=== PATIENT | male | born 1965 | race Caucasian/White ===

== ENCOUNTER → 2024-08-07 07:00 | Outpatient (REF) | payer BC, SELFPAY | LOC: HWRCS 07:00 | PROVIDERS: ATTENDING PHYSICIAN Nurse Practitioner Adult Health | DX: I45.10 Unspecified right bundle-branch block (principal) | CPT/HCPCS: 93306 ==

== ENCOUNTER 2025-03-25 11:58 | Inpatient (IN) | payer BC, SELFPAY ==
[2025-03-25] VITALS (7 sets, daily range): BP systolic 115–190; BP diastolic 60–98; BMI 34.9; BMI 34.2
--- NOTE | 2025-03-25 01:30 | ED.GENMED ---
History of Present Illness
General
Chief Complaint: Flank Pain
Source: patient
Exam Limitations: none
Time Seen by Provider: 03/25/25 01:11
Nursing documentation reviewed up to this point in time: agreed with
History of Present Illness
History of Present Illness:
HISTORY OF PRESENT ILLNESS
The patient is a 59-year-old male with history of borderline hypertension, hyperlipidemia, incomplete right bundle branch block, allergic rhinitis, presenting with mid back pain that began a couple of days ago. The pain is constant, worsening over
the past 2 days, and the patient reports it being the same regardless of movement or laying down. The patient has been taking Tylenol and ibuprofen, which provide temporary relief. Last dose of ibuprofen, 600 mg at 8:00 PM. The pain radiates
across the back without a specific focal point and does not seem to be more pronounced on one side. Additionally, the patient mentions experiencing a scratchy throat that began approximately two days ago, potentially due to a mild cold that started
Saturday. They deny any nausea, but do notice slight stomach discomfort particularly after eating, localizing to the upper abdomen that began today. He believes he has been running fever that began 2 days ago. He denies hematuria, or dysuria has
been noticed, and the patient has not had a history of kidney problems.
His only daily medications are an allergy medicine and a nasal spray.
Past History
Past History
ED Past Medical History: HTN, Hypercholesterolemia and Other (Allergic rhinitis, incomplete right bundle branch block)
ED Past Surgical History: Orthopedic and Other (Myringotomy tubes, nasal surgery)
Social History
Tobacco: Non-smoker
Alcohol: Occasional
Drug: None
Personal:
Living: with family
Employment: Employed
Family History
Family History: Other (Noncontributory)
Phy Exam
Physical Exam
Physical Exam:
GENERAL: 59-year-old gentleman appears his stated age, awake and alert, pleasant, appears in no acute distress. Low-grade fever noted 100.1 �F. Moderately hypertensive.
EYE: pupils equal and reactive. anicteric
NECK: Supple, nontender, no meningismus, no significant adenopathy.
ENT: posterior pharynx is clear, oral mucosa is moist. TM clear b/l, nares patent.
CARDIAC: Regular rate and rhythm. no murmur.
LUNGS: Clear breath sounds bilaterally, no acute respiratory distress, no wheezes/rales/rhonchi
ABDOMEN: Soft, nondistended, mild epigastric tenderness to palpation, no r/g, no cvat. normoactive BS.
BACK: No midline bony tenderness. No paravertebral muscle tenderness.
NEUROLOGICAL: Alert and oriented x3, no focal neuro deficits. Gait is hooks and steady.
SKIN: Warm and dry, normal color, skin intact. No rash.
MUSCULOSKELETAL: No C/C/E. peripheral pulses are full and equal b/l. No palpable tenderness.
PSYCH: Normal and appropriate interaction.
Course
Orders/Labs/Results
Orders:
Orders
03/25/25 01:29
Electrocardiogram (*1) Urgent
Reason for Study: Abdominal Pain
EKG- Treatment ONCE
03/25/25 01:30
0.9% Sodium Chloride 1000 ml [Nss] 1,000 ml IV BOLUS
Acetaminophen [Tylenol] 1,000 mg PO NOW STA
03/25/25 01:35
Complete Blood Count/With Diff Urgent
Comprehensive Metabolic Panel Urgent
Lipase Urgent
Troponin I Urgent
Influenza A+B Rapid Molecular Urgent
ISAIAS Source: Nasal Swab
Specimen Description:
03/25/25 01:36
COVID-19 Antigen Urgent
Source: Nasal Swab
Lactic Acid Urgent
03/25/25 02:38
CT Abd/pelvis W Iv Cont Urgent
Comment:
Reason For Exam: acute upper abd/mid back pain, fever, elevd lipase
03/25/25 02:39
HYDROmorphone [Dilaudid] 0.5 mg IV NOW STA
03/25/25 02:46
Urinalysis Reflex To Culture Urgent
Date Specimen was Collected: 03/25/25
Time Specimen was Collected: 02:42
Abnormal Lab Results
03/25/25
01:35
WBC 12.3 H 10^3/uL
(4.8-10.8)
Absolute Neuts (auto) 8.1 H 10^3/uL
(1.4-6.5)
Absolute Monos (auto) 1.9 H 10^3/uL
(0.1-0.6)
Lymphocytes % 15.7 L %
(20.5-51.1)
Monocytes % 15.4 H %
(1.7-9.3)
Glucose 120 H mg/dl
(70-99)
Lipase 862 H U/L
(23-300)
03/25/25 01:35
03/25/25 01:35
Vital Signs
Temp: 100.1 F
Initial and Last Documented VS:
Initial Vital Signs
Temp Pulse BP Pulse Ox
99.3 F 97 190/98 98
03/25/25 00:52 03/25/25 00:52 03/25/25 00:52 03/25/25 00:52
Last Documented Vital Signs
Temp Pulse BP Pulse Ox
100.1 F 97 181/94 98
03/25/25 01:31 03/25/25 00:52 03/25/25 00:56 03/25/25 01:31
MDM/Problems Addressed
Differential Diagnosis Includes:
DIFFERENTIAL DIAGNOSIS
The Differential Diagnosis includes, in no particular order and is not limited to:
1. Musculoskeletal strain
2. Kidney stone
3. Pyelonephritis
4. Gastroesophageal reflux disease
5. Upper respiratory infection
6. Peptic ulcer disease
7. Gallbladder disease
8. Pneumonia
9. Viral pharyngitis
10. Hypertensive emergency
MDM/Problems Addressed:
Acute back pain
Acute febrile illness
Mild viral URI symptoms
Will check labs, lactic acid, flu and COVID testing, urinalysis, EKG, troponin.
Will consider imaging depending on results.
Will give a dose of Tylenol now for fever and initiate IV fluids.
Chronic conditions affecting care:
Allergic rhinitis
Hyperlipidemia
Newer onset hypertension. Upon review of PCP records, blood pressure elevated 156/100 during routine visit June of this year.
*Radiology
Radiology exam reviewed: radiology read reviewed (CAT scan shows inflammation surrounding the pancreas suggesting pancreatitis. No bowel obstruction or diverticulitis. No cholecystitis.)
*Pulse Oximetry
SaO2: 98
Oxygen Mode of Delivery: Room air
Patient hypoxic: no
*EKG
Interpreted by ED Provider?: Yes
Interpretation: normal
Comparison EKG: no comparison EKG present
Rate: normal
Rhythm: sinus
[place]: normal axis
Interval: normal interval
QRS Pattern: normal QRS
Ischemia: no ischemia
*Filteration Operator Interpretation
Rate: normal
Interpretation: normal
Rhythm: sinus
*Critical Care Note
Total Time (30-74mins, 75-104mins- exclusive of procedures): Not Applicable
Update Note
Update Note:
04:20
Labs are remarkable for moderately elevated lipase at 862. LFTs are otherwise within normal limits. White blood cell count mildly elevated at 12.3. Troponin is negative. EKG is unremarkable. COVID and flu testing are negative.
CT abdomen pelvis shows inflammation surrounding the pancreas suggestive of pancreatitis. No cholecystitis. Incidental note of enlarged prostate. Bladder wall thickening. Urinalysis is normal.
No prior history of pancreatitis.
Moderate improvement in pain after an IV dose of Dilaudid
Will continue IV fluids, continue pain medication as needed and will plan to admit to hospitalist service.
ED Attending Note
-
Portions of this chart may have been created with voice recognition software.� Occasional wrong word or��sound alike� substitutions may have occurred due to the inherent limitations of voice recognition software.
Discharge Plan
Departure
Patient Disposition: Admit
Date of Disposition: 03/25/25
Time of Disposition: 04:21
Admit to doctor: Karlene
Presentation/result/management discussed w/ accepting MD/DO: Hospitalist
Condition: Fair
Discharge Problem:
Acute pancreatitis
Referrals:
Yoko Nash CRNP [Family Provider, General]
Interventions
Interventions:
*Risk Screen - Suicide Last Done: 03/25/25 00:56
Discharge Date and Time
Print Language: AMHARIC
[2025-03-25] MEDS: TYLENOL 1000 MG PO (01:38)
[2025-03-25] MEDS: NSS 1000 IV ×2 (01:39→18:35)
[2025-03-25 01:43] LABS: Hematocrit 41.3 % (39.0-52.0); Hemoglobin 14.1 g/dL (13.0-18.0); Mean Corp Hgb Conc. 34.1 g/dL (33.0-37.0); Mean Corpuscular Volume 81.3 fL (80.0-94.0); Nucleated Red Blood Cells % 0 % (-); Platelet Count 264 10^3/uL (130-400); Red Cell Dist. Width 13.2 % (11.5-14.5)
[2025-03-25 02:06] LABS: COVID-19 Antigen Negative (Negative)
[2025-03-25 02:08] LABS: ALT (SGPT) 26 U/L (0-50); AST (SGOT) 26 U/L (17-59); Albumin 4.3 g/dl (3.5-5.0); Alkaline Phosphatase 80 U/L (38-126); Blood Urea Nitrogen 14 mg/dl (9-20); Calcium 8.9 mg/dl (8.4-10.2); Carbon Dioxide 24 mmol/L (22-30); Chloride 104 mmol/L (98-107); Glucose 120 mg/dl (70-99); Lipase 862 U/L (23-300); Potassium 4.0 mmol/L (3.5-5.1); Sodium 138 mmol/L (135-145); Total Protein 7.6 g/dl (6.3-8.2); eGFR > 60.00
[2025-03-25 02:19] LABS: Troponin I 0.013 ng/ml
[2025-03-25 03:00] LABS: Urine Character Clear (Clear)
[2025-03-25] MEDS: DILAUDID 0.5 MG IV ×2 (03:15→08:07)
--- NOTE | 2025-03-25 04:25 | HPS.HSE ---
Family Physician
-
Family Physician: Yoko Nash
Chief Complaint
-
Abdominal pain
History of Present Illness
Patient is a 59-year-old who denies any significant past medical history except for occasional seasonal allergies presents to the emergency department with abdominal pain.
Patient reported started having symptoms about Saturday with mid epigastric abdominal pain that was radiating to the left upper quadrant. He says the pain is worse with food intake. Today the pain was radiating to the back. Initially thought it was
flank pain but he had no urinary symptoms. He had mild nausea but no vomiting. Patient denies any changes to the color of his urine. Denies any changes coloration hives or skin.
Patient initially thought that on Saturday he had mild upper respiratory symptoms and he was taking Zicam (zinc supplement) for symptomatic relief.
Denies any personal history of family history of gallstones. Patient reports that he drinks several beers daily. A endorse drinking significant amount of alcohol over the and stated that his last drink was on Saturday when he
had about 4-5 beers. He denied any prior history of pancreatitis. He denies any smoking.
In the emergency department he was afebrile, blood pressure was elevated 180/90 with a pulse rate of 97 and oxygen saturation 98%. He had a low-grade temp of 100.1. ECG shows normal sinus rhythm at rate of [address] or T wave
changes. CBC shows a white count of 12.3 but otherwise unremarkable. Electrolytes BUN and creatinine were normal. LFTs were normal, lipase was 860. CT of the abdomen pelvis shows pancreatic inflammation suggestive of pancreatitis without any
evidence of necrosis. No obstructing biliary stone, no gallbladder stone, no evidence of cholecystitis. No acute intra-abdominal process noted.
Medical History
Past Medical History
Past Medical History: Reports None
Past Surgical History: Reports None
Social History
Tobacco: Non-smoker
Alcohol: Binge drinker
Drug: None
Family History
Family History: Not pertinent
Allergies / Home Medications
Allergies reflects when Allergies were last updated in [facility].
Home Medications with original date entered in [facility]
Allergy/Medication List:
Allergies
Allergy/AdvReac Type Severity Reaction Status Date / Time
No Known Allergies Allergy Unverified 03/25/25 01:02
If medication reconciliation has not been performed, why?: Other
If Other, explain: Patient does not take any prescription medications.
Review of Systems
-
Constitutional: Reports No Symptoms
EENT: Reports No Symptoms
Respiratory: Reports No Symptoms
Cardiac: Reports No Symptoms
Abdomen/GI: Reports Abdominal Pain
: Reports No Symptoms
Musculoskeletal: Reports No Symptoms
Skin: Reports No Symptoms
Neurological: Reports No Symptoms
Endocrine: Reports No Symptoms
Hematologic/Lymphatic: Reports No Symptoms
Psych: Reports No Symptoms
Physical Exam
Vital Signs
Vital Signs
Temp Pulse BP Pulse Ox
100.1 F 97 181/94 98
03/25/25 01:31 03/25/25 00:52 03/25/25 00:56 03/25/25 01:31
Physical Exam
General: Well Developed, Well Nourished and No Apparent Distress
HEENT: NormoCephalic, Moist mucous membranes and Atraumatic
Respiratory: Clear
Cardiac: S1/S2 and Regular Rhythm; No Murmur or Rub
GI: Soft, Non Tender, Non Distended and Normal Bowel Sounds; No Organomegaly
Rectal: Deferred by Provider
Musculoskeletal: No Clubbing, No Cyanosis and No Edema
Skin: No Rash
Neuro: Nonfocal/grossly intact
Laboratory Results
-
03/25/25 01:35
03/25/25 01:35
Laboratory Results
Lactic Acid 0.9 mmol/L (0.7-2.0) 03/25/25 01:36
Total Bilirubin 0.8 mg/dl (0.2-1.3) 03/25/25 01:35
AST 26 U/L (17-59) 03/25/25 01:35
ALT 26 U/L (0-50) 03/25/25 01:35
Alkaline Phosphatase 80 U/L (38-126) 03/25/25 01:35
Troponin I 0.013 ng/ml 03/25/25 01:35
Lipase 862 U/L (23-300) H 03/25/25 01:35
Data Reviewed
-
CT Scan: Report Reviewed by me
Medical Tests (Nuc Med, Echo, EKG etc): Image Personally Visualized and interpreted
Lab Data: Labs Reviewed by me
Old Records: Reviewed
Impression/Plan
-
IMPRESSION:
5-year-old male with no known significant past medical history presents to the emergency department with epigastric pain radiating to the back and flank for about the last 3 days in the setting of some increased alcohol intake. Labs showed
pancreatitis with lipase of 860, CT abdomen pelvis consistent with pancreatitis without complication. There are no gallstones, biliary ductal dilation, or acute intra-abdominal process. LFTs were normal. Patient is nontoxic-appearing, labs are
unremarkable otherwise. COVID and flu test were negative.
PLAN:
Acute pancreatitis -suspect alcohol induced pancreatitis, and no evidence of gallstone pancreatitis. Patient's not on any medications. Unlikely viral induced episode.
� Admit to MedSurg observation
� N.p.o. for now
� Aggressive IV fluids
� Pain control antiemetics
�Check lipid panel and A1c in a.m.
� Advance diet as tolerated
DVT prophylaxis�Lovenox subcu
CODE STATUS�full code
[2025-03-25 06:00] LABS: Hematocrit 39.9 % (39.0-52.0); Hemoglobin 13.6 g/dL (13.0-18.0); Mean Corp Hgb Conc. 34.1 g/dL (33.0-37.0); Mean Corpuscular Volume 83.1 fL (80.0-94.0); Platelet Count 249 10^3/uL (130-400); Red Cell Dist. Width 13.2 % (11.5-14.5)
[2025-03-25 06:29] LABS: Blood Urea Nitrogen 13 mg/dl (9-20); Calcium 8.7 mg/dl (8.4-10.2); Carbon Dioxide 21 mmol/L (22-30); Chloride 104 mmol/L (98-107); Estimated Creatinine Clearance > 125 ml/min; Glucose 119 mg/dl (70-99); Potassium 4.1 mmol/L (3.5-5.1); Sodium 136 mmol/L (135-145); Triglycerides 58 mg/dl (10-149); eGFR > 60.00
[2025-03-25] MEDS: D5LR 1000 IV (08:08)
--- NOTE | 2025-03-25 08:28 | W.PN.HOSP.TC ---
Today's Communication/Plan
-
NPO after midnight for pacemaker in AM.
Advance diet to clear liquid diet.
Assessment / Plan
Assessment / Plan
Impression:
5-year-old male with no known significant past medical history presents to the emergency department with epigastric pain radiating to the back and flank for about the last 3 days in the setting of some increased alcohol intake. Labs showed
pancreatitis with lipase of 860, CT abdomen pelvis consistent with pancreatitis without complication. There are no gallstones, biliary ductal dilation, or acute intra-abdominal process. LFTs were normal. Patient is nontoxic-appearing, labs are
unremarkable otherwise. COVID and flu test were negative.
CT abdomen pelvis:
Gallbladder: Unremarkable.
Bile Ducts: No bile duct dilatation.
Pancreas: Mild inflammatory soft tissue stranding surrounding the pancreas, most pronounced adjacent to the pancreatic head, consistent with pancreatitis.
Normal triglyceride
In the ER patient developed 8-second pause followed by 2 3-second pauses, reconsulted, plan for pacemaker
Assessment/plan:
Sinus pauses.
Patient developed 8-second pause followed by 2, 3-second pauses.
Cardiology consulted.
Echocardiogram pending.
N.p.o. after midnight for possible pacemaker.
Acute pancreatitis -suspect alcohol induced pancreatitis.
CT abdomen pelvis:
Gallbladder: Unremarkable.
Bile Ducts: No bile duct dilatation.
Pancreas: Mild inflammatory soft tissue stranding surrounding the pancreas, most pronounced adjacent to the pancreatic head, consistent with pancreatitis.
Normal triglyceride
� Admitted under hospitalist
� Initially n.p.o., now on clear
� Aggressive IV fluids
� Pain control antiemetics
�Check lipid panel and A1c in a.m.
DVT prophylaxis�Lovenox subcu
CODE STATUS�full code
Diet: CLD- NPO after MN
Disposition: NPO after midnight for pacemaker in AM.
Advance diet to clear liquid diet.
Total time spent on today's encounter was 55 minutes which included time spent in counseling the patient/family regarding diagnosis and treatment plan as listed above, goals of care, and symptom management. Case was discussed with nursing staff,
specialists, and care coordinators/case management. All labs and imaging personally reviewed by me. Remainder the time spent in detailed review of previous records, lab data, imaging, and other medical provider documentation.
Anticipated Discharge: 24 - 48 hours
Subjective/Interval History
-
Date of Service: March 25, 2025
Patient seen and examined at bedside, denies any chest pain or shortness of breath, no abdominal pain, no nausea, no vomiting, no diarrhea or constipation.
Patient had 8 seconds pause followed by 2 to 3-second pauses, cardiology consulted
Objective Data
-
Labs:
Laboratory Results
03/25/25 03/25/25
01:35 05:48
WBC 12.3 H 13.7 H
Hgb 14.1 13.6
Hct 41.3 39.9
Plt Count 264 249
Sodium 138 136
Potassium 4.0 4.1
Chloride 104 104
Carbon Dioxide 24 21 L
BUN 14 13
Creatinine 0.9 0.8
Glucose 120 H 119 H
Calcium 8.9 8.7
Total Bilirubin 0.8
AST 26
ALT 26
Alkaline Phosphatase 80
Vital Signs:
Vital Signs
Temp Pulse Resp BP Pulse Ox
100.1 F 76 16 145/63 97
03/25/25 01:31 03/25/25 08:15 03/25/25 04:15 03/25/25 08:04 03/25/25 08:04
Physical Exam
-
General: Well Developed, Well Nourished, No Apparent Distress and Comfortable
HEENT: Normocephalic, Atraumatic, Moist Mucous Membranes, No Ptosis, PERRLA and Nose Appears Normal
Respiratory: Clear to Auscultation and Non Labored Respirations
Cardiac: Regular Rhythm and S1/S2
Breast: Deferred by me
GI: Soft and Tender (Mild epigastric tenderness)
Genito-urinary: No Costovertebral Tender
Musculoskeletal: No Clubbing, No Cyanosis and No Edema
Skin: Warm
Neuro: Awake, Alert, Oriented, AO x 3 and No Motor Deficits
Psych: Calm
Data Reviewed
-
Diagnostic Radiology: Image personally visualized and interpreted and Report Reviewed by me
CT Scan: Image personally visualized and interpreted and Report Reviewed by me
Ultrasound: Image personally visualized and interpreted and Report Reviewed by me
MRI: Image personally visualized and interpreted and Report Reviewed by me
Medical Tests (Nuc Med, Echo etc): Image personally visualized and interpreted and Report Reviewed by me
Labs: Labs Reviewed by me
Old Records: Reviewed
--- NOTE | 2025-03-25 09:47 | CON.CAR ---
Addendum entered and electronically signed by Garrett Lobo MD 03/25/25 15:46:
I saw and examined the patient independently and performed majority of MDM.
The COMMERCIAL TRUCK DRIVER's note was reviewed and I agree with the note with changes/additions below.
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 Being treated for EtOH pancreatis. Had episode of nausea, vomiting, then felt dizziness and pre-syncopal. No chest pain. Exam with RRR, no
murmurs, no edema. EKG: NSR, iRBBB. Tele: 8 sec pause at time of sxs. Echo: EF 55-60%, no sig valve disease.
Sinus node dysfunction. Severe. 8 second pause. With dizziness. Discussed with EP. Plan for PPM this admission, once pancreatitis improves.
Pancreatitis. NPO, IV fluids per hospitalist.
HTN. Trend BP. Will likely need BP med started this admission.
Original Note:
Consultation
Consultation Request
Date/Time Consultation Requested: 03/25/25 0900
Date/Time Consultation Performed: 03/25/25 0939
Requesting Provider: Dr. Monroy
Performing Provider: Clara DIOR for Dr. Lobo
Reason for Consultation: cardiac pause
Medical History
-
Chief Complaint: abdominal pain
History of Present Illness:
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 He describes it as achy around his abdomen and radiates to
his back. He is seen to have pancreatitis. He has been given fluids. He received Dilaudid overnight without issue, but then this AM, he received Dilaudid and afterward developed nausea and dry heaves and monitor revealed 8 second pause. He did not
pass out. About 1 hour later, he went to the bathroom to urinate. When washing his hands, he felt light-headed. He walked to the bed and while setting up his pillow felt nauseated and with dry heaves and LH again. Both times were associated with
bradycardia with about 3 second pauses x 2. He looks well at the time of my assessment. He is in SR. Baseline EKG SR with IC RBBB. Pain is controlled.
Past Medical History
Past Medical History: HTN, Hypercholesterolemia and Other (as above)
Social History
Tobacco: Non-Smoker
Alcohol: Binge Drinker (1/2 case beer )
Drug: None
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
Family History
Family History: Reviewed & Not Pertinent
Allergies / Home Medications
Allergy/AdvReac Type Severity Reaction Status Date / Time
No Known Allergies Allergy Verified 03/25/25 05:22
�Medication �Instructions �Recorded �Confirmed �Type
acetaminophen 325 mg tablet 650 mg PO Q4H PRN mild pain 03/25/25 03/25/25 History
(Tylenol)
azelastine 137 mcg (0.1 %) nasal 1 spray intranasal DAILY 03/25/25 03/25/25 History
spray
fluticasone propionate 50 1 spray intranasal DAILY 03/25/25 03/25/25 History
mcg/actuation nasal
spray,suspension
ibuprofen 200 mg tablet 400 mg PO Q6H PRN mild pain 03/25/25 03/25/25 History
Review of Systems
-
History Source: Patient
All other systems: Negative unless noted
Physical Exam
Vital Signs
Temp Pulse Resp BP Pulse Ox
98.1 F 76 16 145/63 97
03/25/25 08:58 03/25/25 08:15 03/25/25 04:15 03/25/25 08:04 03/25/25 08:04
Lab Results
03/25/25 05:48
03/25/25 05:48
Troponin I 0.013 ng/ml 03/25/25 01:35
Physical Exam
General: Well Developed, Well Nourished and No Apparent Distress
HEENT: Normocephalic and Anicteric
Respiratory: Clear and Non Labored Respirations
Cardiac: Regular Rhythm
Musculoskeletal: No Edema
Skin: Warm and Dry
Neuro: AO x 3
Psych: Calm
Impression / Plan
-
Pancreatitis:
-on IV fluids and getting pain meds
-management per primary team
-we did discuss recommendation for (at least) decreasing ETOH use
Cardiac pause, bradycardia:
-currently in SR. Denies syncope. Had nausea/LH as described.
-8 second pause, followed by two 3 second pauses. Some artifact, so hard to determine rhythm afterward.
-echo 07/2024 normal, being updated today. Will check thyroid. Not on any AV santiago agents as OP.
-Baseline EKG SR IC RBBB
-will review with family practice physician
-may require pacemaker
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
HLD:
-patient tells me mild and has not required meds
HTN:
-patient tells me borderline and has not required meds
Data Reviewed
-
EKG: Tracing Personally Visualized and interpreted (SR IC RBBB [address] Scan: Report Reviewed by me (Mild pancreatitis.)
Medical Tests (Nuc Med, Echo etc): Report Reviewed by me (Echo 08/07/2024: Normal biventricular size and systolic function without regional wall motion abnormality. No significant valvular disease. )
Labs: Labs Reviewed by me
--- NOTE | 2025-03-25 13:24 | CM ---
Chart reviewed and spoke with pateint at bedside
Lives alone in a split level home
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
Independent with ADLs and ambulation
no DME
PCP Cielo Nash
[facility]
no hx of VN nor SNF
DCP is to return home and dtr can drive her home
Cm will continue to follow up for dcp needs
[2025-03-25] MEDS: ZOFRAN 4 MG IV ×2 (14:19→21:06)
[2025-03-25] MEDS: LOVENOX 40 MG SC (18:35)
[2025-03-25] MEDS: ROXICODONE 5 MG PO (18:40)
[2025-03-25] MEDS: ROXICODONE 10 MG PO (23:42)
[2025-03-26] MEDS: NSS 1000 IV ×2 (01:34→16:37)
[2025-03-26 03:44] VITALS: BP 115/60
[2025-03-26 07:40] VITALS: BP 133/68
--- NOTE | 2025-03-26 08:34 | W.PN.HOSP.TC ---
Today's Communication/Plan
-
For pacemaker today.
Assessment / Plan
Assessment / Plan
Impression:
5-year-old male with no known significant past medical history presents to the emergency department with epigastric pain radiating to the back and flank for about the last 3 days in the setting of some increased alcohol intake. Labs showed
pancreatitis with lipase of 860, CT abdomen pelvis consistent with pancreatitis without complication. There are no gallstones, biliary ductal dilation, or acute intra-abdominal process. LFTs were normal. Patient is nontoxic-appearing, labs are
unremarkable otherwise. COVID and flu test were negative.
CT abdomen pelvis:
Gallbladder: Unremarkable.
Bile Ducts: No bile duct dilatation.
Pancreas: Mild inflammatory soft tissue stranding surrounding the pancreas, most pronounced adjacent to the pancreatic head, consistent with pancreatitis.
Normal triglyceride
In the ER patient developed 8-second pause followed by 2 3-second pauses, reconsulted, plan for pacemaker
Assessment/plan:
Sinus pauses.
Patient developed 8-second pause followed by 2, 3-second pauses.
Cardiology consulted.
Echocardiogram pending.
N.p.o. after midnight for possible pacemaker.
03/26
Patient medically clear for Pacemaker procedure today.
Acute pancreatitis -suspect alcohol induced pancreatitis.
CT abdomen pelvis:
Gallbladder: Unremarkable.
Bile Ducts: No bile duct dilatation.
Pancreas: Mild inflammatory soft tissue stranding surrounding the pancreas, most pronounced adjacent to the pancreatic head, consistent with pancreatitis.
Normal triglyceride
� Admitted under hospitalist
� Initially n.p.o., now on clear
� Aggressive IV fluids
� Pain control antiemetics
03/26
pain improved
DVT prophylaxis�Lovenox subcu
CODE STATUS�full code
Diet: NPO
Disposition: For pacemaker today.
Total time spent on today's encounter was 55 minutes which included time spent in counseling the patient/family regarding diagnosis and treatment plan as listed above, goals of care, and symptom management. Case was discussed with nursing staff,
specialists, and care coordinators/case management. All labs and imaging personally reviewed by me. Remainder the time spent in detailed review of previous records, lab data, imaging, and other medical provider documentation.
Anticipated Discharge: 24 - 48 hours
Subjective/Interval History
-
Date of Service: March 26, 2025
Patient seen and examined at bedside, denies any chest pain or shortness of breath, no abdominal pain, no nausea, no vomiting, no diarrhea or constipation.
cleared for pacemaker today.
Objective Data
-
Labs:
Laboratory Results
03/26/25
08:14
WBC Pending
Hgb Pending
Hct Pending
Plt Count Pending
Sodium Pending
Potassium Pending
Chloride Pending
Carbon Dioxide Pending
BUN Pending
Creatinine Pending
Glucose Pending
Calcium Pending
Vital Signs:
Vital Signs
Temp Pulse Resp BP Pulse Ox
98.8 F 80 18 133/68 95
03/26/25 07:40 03/26/25 07:40 03/26/25 07:40 03/26/25 07:40 03/26/25 07:40
I&O
03/25/25 03/26/25 03/27/25
06:59 06:59 06:59
Intake Total 2139
Output Total
Balance 2138 / 2138
Physical Exam
-
General: Well Developed, Well Nourished, No Apparent Distress and Comfortable
HEENT: Normocephalic, Atraumatic, Moist Mucous Membranes, No Ptosis, PERRLA and Nose Appears Normal
Respiratory: Clear to Auscultation and Non Labored Respirations
Cardiac: Regular Rhythm and S1/S2
Breast: Deferred by me
GI: Soft and Nontender
Genito-urinary: No Costovertebral Tender
Musculoskeletal: No Clubbing, No Cyanosis and No Edema
Skin: Warm
Neuro: Awake, Alert, Oriented, AO x 3 and No Motor Deficits
Psych: Calm
[2025-03-26 08:37] LABS: Hematocrit 39.6 % (39.0-52.0); Hemoglobin 13.2 g/dL (13.0-18.0); Mean Corp Hgb Conc. 33.3 g/dL (33.0-37.0); Mean Corpuscular Volume 84.1 fL (80.0-94.0); Platelet Count 224 10^3/uL (130-400); Red Cell Dist. Width 13.2 % (11.5-14.5)
[2025-03-26 09:20] LABS: Blood Urea Nitrogen 13 mg/dl (9-20); Calcium 8.6 mg/dl (8.4-10.2); Carbon Dioxide 26 mmol/L (22-30); Chloride 101 mmol/L (98-107); Estimated Creatinine Clearance 111 ml/min; Glucose 92 mg/dl (70-99); Potassium 4.0 mmol/L (3.5-5.1); Sodium 135 mmol/L (135-145); eGFR > 60.00
--- NOTE | 2025-03-26 09:20 | W.PN.UPDATE ---
Update Note
Progress Note Update
EP Note
I have examined this patient prior to performance of the scheduled procedure. His condition is improved from the time of the History and Physical and the patient is able to undergo the scheduled procedure. Dr. Stanley feels that he is medically ok for
pacemaker implant today.
Dr. Lobo had reviewed case with Dr. Vasquez yesterday. I reviewed telemetry and obtained additional history.
No history of syncope. In addition to the two near syncopal episodes yesterday with documented asystole from COMPLETE HEART BLOCK he has had another episode in the last week or so while watching the [employer] game that felt jus like
yesterday's two episodes.
Most likely this is primary conduction system disease and vasovagal syncope is less likely. Vasovagal syncope more often has sinus slowing/sinus arrest with poor escape vs no change in sinus rate and asystole from only heart block.
He does have mild LVH on two echoes and RV conduction delay on EKG. Some BPs have been elevated but he is not being treated for HTN.
Signed informed consent was obtained after I reviewed the risks, benefits, and alternatives of pacemaker implant. Pacemaker followup was reviewed as was the need for future pulse generator changes with associated risks.
[2025-03-26 11:08] VITALS: BP 130/64
--- NOTE | 2025-03-26 14:55 | CM ---
Plan for pacemaker today
--- NOTE | 2025-03-26 16:39 | ITS.CL.PACE ---
Dynamometer Tuner - Pacemaker Implant
Pacemaker Implant
Procedure Report:
Date of Procedure: March 26, 2025.
Procedure: Pacemaker Implantation. Left upper extremity venogram.
Indication: The pacemaker is for the treatment of nonreversible symptomatic bradycardia due to paroxysmal third degree atrioventricular block.
Performing physician: Andrea Marcus MD, [facility].
Implants:
Pulse Generator: Medtronic; Model# W1DR01; Serial# [id number].
RA Lead: Medtronic; Model# 5076-52cm; Serial# [id number].
RV Lead: Medtronic; Model# 3830-69cm; Serial# [id number].
Technique: A time out was performed. A 10 mL upper extremity venogram demonstrated patent left axillary, cephalic, and subclavian veins. The procedure site was identified. The patient was anesthetized by the anesthesia service. Preoperative
vancomycin and aztreonam was administered. The patient was prepped and draped in the usual fashion. Local anesthetic was applied to the left prepectoral subcutaneous tissue. A 3 inch incision was made along the left deltopectoral groove. Dissection
was carried to the fascia. The left cephalic vein was easily isolated and proximal and distal control with 2-0 Vicryl suture. Using a micropuncture needle to access the cephalic vein under direct visualization a wire was advanced into the central
circulation. A 7 Fr introducer was placed to allow two 0.35 J wires to be advanced. The leads were introduced with hemostatic peel away introducer sheaths. The RV lead was placed using utilizing the [employer] His delivery catheter ([id number]) that was
advanced to the left bundle area as confirmed by fluoroscopy in the FRENCH and GARCIA projections. The lead tip was advanced. PVC morphology was reviewed. When a satisfactory location was identified (W pattern observed) the lead was screwed into position
with serial turns. Septal engagement was confirmed with gentle torque applied to the guide sheath. After each series of turns (2-3) unipolar sensed morphology and impedance, and paced morphology of V1 was analyzed. The lead was further advanced
until satisfactory morphology and electrical characteristics were confirmed. Several RV lead positions were evaluated before accepting the best location I found. The long guiding sheath was cut and removed from the RV without change in lead
position, impedance, sensing, or capture. The ventricular lead was secured to the pectoralis muscle and fascia with two 0-silk sutures. The atrial lead was placed in the right atrial appendage. 8 volt pacing from each lead did not capture the
diaphragm. The atrial leads was secured to the pectoralis muscle and fascia. A subcutaneous pocket was created with Bovie cautery. Hemostasis was excellent. The leads were appropriately attached to the device. The pocket was irrigated with
antibiotic solution. The device and leads were placed in the pocket. The incision was closed in three layers with absorbable suture. Steri-strips and a silver impregnated dressing were placed. Estimated blood loss was less than 5 ml. There were no
complications. Fluoroscopy time 13.2 minutes and DAP 8 GyCM2. The device was then interrogated after skin closure.
Lead Analysis:
RA lead: P: 1.4 mV; Threshold: 1 V @ 0.4 ms; Impedance: 836 ohms.
RV lead (bipolar): R: 6.4 mV; Threshold: 0.6 V @ 0.4 ms; Impedance: 551 ohms. RV unipolar impedance 620 ohms.
Paced QRS characteristics: V1 has Qr morphology and measures 130 ms in duration, LVAT (stim to peak V5/V6) is 80-85 ms, and R peak V1 to R peak V6 is 46 ms.
Final Programming: MVP (AAIR to DDDR) 50-130 bpm.
Conclusion: Uncomplicated Medtronic pacemaker implant. The pacing system is MRI conditional.
Recommendation: Routine post pacemaker care.
cc: Marie Lobo MD and Garrett Lobo MD.
[2025-03-26] MEDS: LOVENOX 40 MG SC (17:40)
[2025-03-26 19:00] VITALS: BP 128/77
[2025-03-26] MEDS: ANCEF 5 IV (21:52)
[2025-03-26 23:11] VITALS: BP 124/72
[2025-03-27 03:00] VITALS: BP 113/62
[2025-03-27] MEDS: ANCEF 5 IV (05:47)
[2025-03-27 07:00] VITALS: BP 128/70
[2025-03-27 08:22] LABS: Hematocrit 40.0 % (39.0-52.0); Hemoglobin 13.4 g/dL (13.0-18.0); Mean Corp Hgb Conc. 33.5 g/dL (33.0-37.0); Mean Corpuscular Volume 83.3 fL (80.0-94.0); Platelet Count 244 10^3/uL (130-400); Red Cell Dist. Width 12.9 % (11.5-14.5)
[2025-03-27 08:53] LABS: Blood Urea Nitrogen 17 mg/dl (9-20); Calcium 9.0 mg/dl (8.4-10.2); Carbon Dioxide 27 mmol/L (22-30); Chloride 103 mmol/L (98-107); Estimated Creatinine Clearance 111 ml/min; Glucose 115 mg/dl (70-99); Magnesium 2.1 mg/dl (1.6-2.3); Potassium 4.0 mmol/L (3.5-5.1); Sodium 138 mmol/L (135-145); eGFR > 60.00
--- NOTE | 2025-03-27 10:48 | W.PN.CD ---
Addendum entered and electronically signed by Garrett Lobo MD 03/27/25 13:57:
59 yo male with iRBBB admitted with pancreatitis and then noted to have paroxysmal complete heart block with 8 seconds of asystole. Associated with dizziness. Hgb today 13.4, Cr 0.9. EKG's have shown iRBBB and RBBB.
He is now stable s/p PPM. He will follow up with us in the device clinic.
Pancreatitis. Improved.
Original Note:
Today's Communication / Plan
-
Stable for d/c
follow up as OP
Impression / Plan
-
Pancreatitis:
-improved
paroxysmal complete heart block:
-s/p dual chamber PPM
-L pectoral site with dressing intact, no hematoma. reviewed incision site care and L arm restrictions.
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 He will need to bring forms that need to be completed to the office . He should stay out of work until 04/05/25 which is his incision check date. Will provide note for pt.
-CDL requirements may require and extended period off.
HLD:
-has not required meds in the past
HTN:
-Borderline in the past
-currently stable
follow up as planned in OP office.
Physical Exam
Vital Signs/Labs
Vital Signs
Temp Pulse Resp BP Pulse Ox
97.7 F 72 20 128/70 97
03/27/25 07:00 03/27/25 07:00 03/27/25 07:00 03/27/25 07:00 03/27/25 07:00
03/26/25 03/27/25 03/28/25
06:59 06:59 06:59
Actual Weight 111.244 kg
03/27/25 07:45
03/27/25 07:45
Magnesium 2.1 mg/dl (1.6-2.3) 03/27/25 07:45
Triglycerides 58 mg/dl (10-149) 03/25/25 05:48
LAB Results
03/25/25
01:35
Troponin I 0.013
Physical Exam
Constitutional: No acute distress
Cardiovascular: Rhythm & rate is regular and Pedal edema is absent
Respiratory: Respiratory effort normal and Lungs clear to auscul.
Neuro/Psych: AO x 3
Data Reviewed
-
Date of Service: March 27, 2025
EKG: Tracing Personally Visualized and interpreted (NSR 73 bpm ) and Other (-ST )
X-Ray/CT/US/MRI/NUC/PET: Report Reviewed by me (CXR 03/26/25 no pneumothorax)
Labs: Labs Reviewed by me
[2025-03-27 11:00] VITALS: BP 141/80
--- NOTE | 2025-03-27 11:13 | W.PN.HOSP.TC ---
Today's Communication/Plan
-
Discharge home today
Assessment / Plan
Assessment / Plan
Impression:
5-year-old male with no known significant past medical history presents to the emergency department with epigastric pain radiating to the back and flank for about the last 3 days in the setting of some increased alcohol intake. Labs showed
pancreatitis with lipase of 860, CT abdomen pelvis consistent with pancreatitis without complication. There are no gallstones, biliary ductal dilation, or acute intra-abdominal process. LFTs were normal. Patient is nontoxic-appearing, labs are
unremarkable otherwise. COVID and flu test were negative.
CT abdomen pelvis:
Gallbladder: Unremarkable.
Bile Ducts: No bile duct dilatation.
Pancreas: Mild inflammatory soft tissue stranding surrounding the pancreas, most pronounced adjacent to the pancreatic head, consistent with pancreatitis.
Normal triglyceride
In the ER patient developed 8-second pause followed by 2 3-second pauses, reconsulted, plan for pacemaker
Patient status post pacemaker on 03/26
Abdominal pain improved, no further pauses, cleared for discharge home
Assessment/plan:
Sinus pauses s/p pacemaker.
Patient developed 8-second pause followed by 2, 3-second pauses.
Cardiology consulted.
Echocardiogram pending.
N.p.o. after midnight for possible pacemaker.
03/26
Patient medically clear for Pacemaker procedure today.
03/27
Patient status post pacemaker on 03/26
Abdominal pain improved, no further pauses, cleared for discharge home
Acute pancreatitis -suspect alcohol induced pancreatitis.
CT abdomen pelvis:
Gallbladder: Unremarkable.
Bile Ducts: No bile duct dilatation.
Pancreas: Mild inflammatory soft tissue stranding surrounding the pancreas, most pronounced adjacent to the pancreatic head, consistent with pancreatitis.
Normal triglyceride
� Admitted under hospitalist
� Initially n.p.o., now on clear
� Aggressive IV fluids
� Pain control antiemetics
03/26
pain improved
03/27
Tolerating diet, will be discharged
DVT prophylaxis�Lovenox subcu
CODE STATUS�full code
Diet: Low-fat diet
Disposition: Discharge home today
Total time spent on today's encounter was 55 minutes which included time spent in counseling the patient/family regarding diagnosis and treatment plan as listed above, goals of care, and symptom management. Case was discussed with nursing staff,
specialists, and care coordinators/case management. All labs and imaging personally reviewed by me. Remainder the time spent in detailed review of previous records, lab data, imaging, and other medical provider documentation.
Anticipated Discharge: Today
Subjective/Interval History
-
Date of Service: March 27, 2025
Patient seen and examined at bedside, status post pacemaker yesterday, denies any chest pain or shortness of breath, no abdominal pain, no nausea, no vomiting, no diarrhea or constipation.
Objective Data
-
Labs:
Laboratory Results
03/27/25
07:45
WBC 13.8 H
Hgb 13.4
Hct 40.0
Plt Count 244
Sodium 138
Potassium 4.0
Chloride 103
Carbon Dioxide 27
BUN 17
Creatinine 0.9
Glucose 115 H
Calcium 9.0
Vital Signs:
Vital Signs
Temp Pulse Resp BP Pulse Ox
97.7 F 72 20 128/70 97
03/27/25 07:00 03/27/25 07:00 03/27/25 07:00 03/27/25 07:00 03/27/25 07:00
I&O
03/26/25 03/27/25 03/28/25
06:59 06:59 06:59
Intake Total 0 / 0 1240 / 1240
Output Total
Balance 2139 / 2139 1240 / 1240
Physical Exam
-
General: Well Developed, Well Nourished, No Apparent Distress and Comfortable
HEENT: Normocephalic, Atraumatic, Moist Mucous Membranes, No Ptosis, PERRLA and Nose Appears Normal
Respiratory: Clear to Auscultation and Non Labored Respirations
Cardiac: Regular Rhythm, S1/S2 and Other (Pacemaker incision clean)
Breast: Deferred by me
GI: Soft and Nontender
Genito-urinary: No Costovertebral Tender
Musculoskeletal: No Clubbing, No Cyanosis and No Edema
Skin: Warm
Neuro: Awake, Alert, Oriented, AO x 3 and No Motor Deficits
Psych: Calm
--- NOTE | 2025-03-27 11:19 | W.DCSUMMARY ---
Discharge Summary
Discharge Data
Date of Admission: 03/25/25
Date of Discharge: 03/27/25
Total time spent discharging patient (in min): 40
-
Pending Results: No
Hospital Course
Hospital course
59-year-old male with no known significant past medical history presents to the emergency department with epigastric pain radiating to the back and flank for about the last 3 days in the setting of some increased alcohol intake. Labs showed
pancreatitis with lipase of 860, CT abdomen pelvis consistent with pancreatitis without complication. There are no gallstones, biliary ductal dilation, or acute intra-abdominal process. LFTs were normal. Patient is nontoxic-appearing, labs are
unremarkable otherwise. COVID and flu test were negative.
CT abdomen pelvis:
Gallbladder: Unremarkable.
Bile Ducts: No bile duct dilatation.
Pancreas: Mild inflammatory soft tissue stranding surrounding the pancreas, most pronounced adjacent to the pancreatic head, consistent with pancreatitis.
Normal triglyceride
In the ER patient developed 8-second pause followed by 2 3-second pauses, reconsulted, plan for pacemaker
Patient status post pacemaker on 03/26
Abdominal pain improved, no further pauses, cleared for discharge home
During hospitalization patient was treated from the following
Sinus pauses s/p pacemaker.
Patient developed 8-second pause followed by 2, 3-second pauses.
Cardiology consulted.
Echocardiogram pending.
N.p.o. after midnight for possible pacemaker.
03/26
Patient medically clear for Pacemaker procedure today.
03/27
Patient status post pacemaker on 03/26
Abdominal pain improved, no further pauses, cleared for discharge home
Acute pancreatitis -suspect alcohol induced pancreatitis.
CT abdomen pelvis:
Gallbladder: Unremarkable.
Bile Ducts: No bile duct dilatation.
Pancreas: Mild inflammatory soft tissue stranding surrounding the pancreas, most pronounced adjacent to the pancreatic head, consistent with pancreatitis.
Normal triglyceride
� Admitted under hospitalist
� Initially n.p.o., now on clear
� Aggressive IV fluids
� Pain control antiemetics
03/26
pain improved
03/27
Tolerating diet, will be discharged
DVT prophylaxis�Lovenox subcu
CODE STATUS�full code
Diet: Low-fat diet
Disposition: Discharge home today
Total time spent on today's encounter was 40 minutes which included time spent in counseling the patient/family regarding diagnosis and treatment plan as listed above, goals of care, and symptom management. Case was discussed with nursing staff,
specialists, and care coordinators/case management. All labs and imaging personally reviewed by me. Remainder the time spent in detailed review of previous records, lab data, imaging, and other medical provider documentation.
Anticipated Discharge: Today
Discharge Plan
-
Patient Disposition: Home (Routine Discharge)
Discharge Diagnosis/Procedures: Sinus pauses status post pacemaker
Acute pancreatitis
Diet: As tolerated and Low Fat
Additional Diets: Start with low-fat diet for couple weeks and then regular as tolerated
Driving Restrictions: No driving for 1 week
Bathing Restrictions: OK to Shower
Stand Alone Forms: [facility] - Implanted Device
Referrals:
[facility] [Provider Group] - 04/05/25 11:00 am
Referral Note: Post device incision check appointment
Yoko Nash CRNP [Family Provider, General]
Prescriptions:
Continued
acetaminophen [Tylenol] 325 mg Tablet
650 mg PO Q4H PRN (Reason: mild pain)
ibuprofen 200 mg Tablet
400 mg PO Q6H PRN (Reason: mild pain)
azelastine 137 mcg (0.1 %) [place],Non-Aerosol
1 spray INTRANASAL DAILY
fluticasone propionate 50 mcg/actuation [place],Suspension
1 spray INTRANASAL DAILY
Discharge Orders:
Discharge Patient (As Directed); Ordered 03/27/25
Ordered By: Lizeth Monroy
Discharge Date and Time
Print Language: IRISH
== END 2025-03-27 12:48 | disposition home or self-care (01) | DRG 242 ==
LOC: 1 ACUTE 11:58
PROVIDERS: ADMITTING PHYSICIAN Internal Medicine; ATTENDING PHYSICIAN General Practice; CONSULT PHYSICIAN Internal Medicine; EMERGENCY PHYSICIAN Emergency Medicine; FAMILY PHYSICIAN Nurse Practitioner Adult Health
PROC: 02H63JZ Insertion of Pacemaker Lead into Right Atrium, Percutaneous Approach (ICD-10-PCS; 2025-03-26)
PROC: B51N1ZZ Fluoroscopy of Left Upper Extremity Veins using Low Osmolar Contrast (ICD-10-PCS; 2025-03-26)
PROC: 0JH606Z Insertion of Pacemaker, Dual Chamber into Chest Subcutaneous Tissue and Fascia, Open Approach (ICD-10-PCS; 2025-03-26)
PROC: 02HK3JZ Insertion of Pacemaker Lead into Right Ventricle, Percutaneous Approach (ICD-10-PCS; 2025-03-26)
DX: I44.2 Atrioventricular block, complete (principal); K85.90 Acute pancreatitis without necrosis or infection, unspecified; I10 Essential (primary) hypertension; Z11.52 Encounter for screening for COVID-19
CPT/HCPCS: 33208; 71045; 74177; 80048; 80053; 81003; 82077; 83605; 83690; 83735; 84443; 84478; 84484; 85025; 85027; 87502; 87811; 93005; 93306; 96361; 96374; 99285; C1769; C1785; C1887; C1898; Q9967